=== PATIENT | female | born 1970 | race Caucasian/White ===

== ENCOUNTER 2020-09-25 07:44 | Outpatient (REF) | payer OTHER, SELFPAY ==
[2020-09-25 11:06] LABS: MANUAL DIFF FLAG NO
[2020-09-25 11:15] LABS: Basophils Percent Auto 0.6 % (0-2); Eosinophils Absolute Auto 0.3 X10*3/uL (0.0-0.4); Eosinophils Percent Auto 4.1 % (0-4); Hematocrit 41.9 % (37-47); Hemoglobin 13.6 g/dl (12.0-16.0); Imm Gran Abs Auto 0.01 X10*3/uL (0.00-0.03); Imm Gran Pct Auto 0.1 % (0.0-0.4); Lymphocytes Absolute Auto 3.2 X10*3/uL (1.2-4.9); Lymphocytes Percent Auto 46.8 % (20-40); Mean Corpuscular HGB Conc 32.5 g/dl (31.0-35.0); Mean Corpuscular Hemoglobin 30.2 pg (27.0-33.0); Mean Corpuscular Volume 92.9 fL (80-98); Mean Platelet Volume 11.4 fL (9.4-12.3); Monocytes Absolute Auto 0.5 X10*3/uL (0.1-1.2); Monocytes Percent Auto 7.7 % (2-11); Neutrophils Absolute Auto 2.7 X10*3/uL (2.0-8.3); Neutrophils Percent Auto 40.7 % (45-73); Platelet Count 192 X10*3/uL (160-400); Red Blood Count 4.51 X10*6/uL (4.20-5.50); Red Cell Distribution Width 12.4 % (11.0-16.0); White Blood Count 6.8 X10*3/uL (4.8-10.8)
[2020-09-25 11:47] LABS: Alanine Aminotransferase 21 U/L (0-31); Albumin Level 4.3 g/dL (3.5-5.0); Alkaline Phosphatase 49 U/L (39-117); Anion Gap 13 (12-20); Aspartate Amino Transferase 20 U/L (5-31); Bilirubin Total 0.9 mg/dL (0.0-1.0); Blood Urea Nitrogen 12 mg/dL (9-16); Carbon Dioxide 27 mmol/L (22-29); Chloride 104 mmol/L (96-108); Cholesterol 192 mg/dL; Estimated Glomerular Filt Rate > 60; Glucose Fasting 72 mg/dL (60-99); HDL Cholesterol 92 mg/dL; LDL Cholesterol Calculated 89 mg/dl; Potassium 4.1 mmol/l (3.3-5.1); Sodium 140 mmol/L (135-145); Total Protein 7.1 g/dL (6.5-8.0); Triglycerides 55 mg/dL
[2020-09-25 11:55] LABS: Thyroid Stimulating Hormone 2.43 uIU/mL (0.32-4.0); Vitamin D 25-OH Total 18.1 ng/mL (>30)
== END 2020-09-25 07:45 | disposition home or self-care (01) ==
LOC: HO.HMGCLDS 07:44
PROVIDERS: PCP Internal Medicine; Visit Provider Internal Medicine
DX: Z00.00 Encounter for general adult medical examination without abnormal findings (principal); F32.9 Major depressive disorder, single episode, unspecified
CPT/HCPCS: 36415; 80053; 80061; 82306; 84443; 85025

== ENCOUNTER 2021-03-14 17:00 | Outpatient (RCR) | payer OTHER, SELFPAY | END 2021-04-30 12:54 | disposition home or self-care (01) | LOC: HO.PTCHIC 17:00 | PROVIDERS: PCP Internal Medicine; Visit Provider Internal Medicine | DX: M25.551 Pain in right hip (principal) | CPT/HCPCS: 97110; 97112; 97140; 97161 ==

== ENCOUNTER 2021-09-03 09:00 | Outpatient (RCR) | payer OTHER, SELFPAY | END 2021-09-03 10:13 | disposition home or self-care (01) | LOC: HO.PTCHIC 09:00 | PROVIDERS: PCP Internal Medicine; Visit Provider Orthopaedic Surgery Foot and Ankle Surgery | DX: Z96.661 Presence of right artificial ankle joint (principal) | CPT/HCPCS: 97110; 97112; 97116; 97140; 97161; 97530 ==

== ENCOUNTER 2022-09-05 14:55 | Outpatient (REF) | payer OTHER, SELFPAY ==
--- NOTE | ~2022-09-05 | MM_ITS ---
EXAMINATION: BONE DENSITOMETRY CLINICAL INDICATION: Menopause. COMPARISON: None (current study represents initial baseline exam). TECHNIQUE: Using a HAUL DXA System (software version: 13.1) manufactured by [employer] dual-energy x-ray absorptiometry was performed of the lumbar spine and left hip. The images are of good technical quality. Summary results are attached. FINDINGS: AP SPINE L1-L4: BMD 0.963 g/cm2, Z-score -1.2, T-score -1.8, osteopenia. LEFT FEMUR, NECK: BMD 0.916 g/cm2, Z-score 0.1, T-score -0.9, normal. LEFT FEMUR, TOTAL: BMD 0.950 g/cm2, Z-score 0.1, T-score -0.5, normal. IDENTIFIED RISK FACTORS: Menopause, history of fracture (adult). HISTORY OF FRACTURE: Ankle. MEDICATIONS: Calcium supplements or multivitamin, vitamin D. MM/XR DEXA axial skeleton IMPRESSION: 1. DIAGNOSIS: Osteopenia based on the lowest T-score value of -1.8 in the lumbar spine applying World Health Organization criteria. 2. 10-YEAR FRACTURE RISK PREDICTION, FRAX: Major osteoporotic fracture (clinical spine, forearm, hip or shoulder) 8.6%. Hip fracture 0.4%. 3. Treatment Recommendations: NOF guidelines recommend consideration for treatment in postmenopausal women and men age 50 and older presenting with the following: -A hip or vertebral (clinical or morphometric) fracture. -T-score less than or equal to -2.5 at the femoral neck or spine after appropriate evaluation to exclude secondary causes. -Low bone mass at the hip or spine and a 10-year fracture probability by FRAX of greater than or equal to 3% for hip fracture or greater than or equal to 20% for major osteoporotic fracture based on the [place] adapted WHO algorithm. 4. Other Recommendations: All treatment decisions require clinical judgment and consideration of individual patient factors, including patient preferences, comorbidities, previous drug use, risk factors not captured in the FRAX model (e.g. frailty, falls, vitamin D deficiency, increased bone turnover, interval significant decline in bone density) and possible under or overestimation of fracture risk by FRAX. Additional medical evaluation for secondary cause of low bone mineral density may be appropriate. FUTURE SCAN RECOMMENDATION: People with diagnosed cases of osteoporosis or at high risk for fracture should have regular bone mineral density tests. For patients eligible for Medicare, routine testing is allowed once every 2 years. The testing frequency can be increased to one year for patients who have rapidly progressing disease, those who are receiving or discontinuing medical therapy to restore bone mass, or have additional risk factors.
== END 2022-09-05 14:56 | disposition home or self-care (01) ==
LOC: HO.MAMMO 14:55
PROVIDERS: PCP Internal Medicine; Visit Provider Internal Medicine
DX: Z13.820 Encounter for screening for osteoporosis (principal); Z78.0 Asymptomatic menopausal state
CPT/HCPCS: 77080

== ENCOUNTER 2024-07-02 08:07 | Outpatient (REF) | payer OTHER, SELFPAY ==
[2024-07-02 10:31] LABS: MANUAL DIFF FLAG NO
[2024-07-02 10:41] LABS: Appearance Urine Clear; Color Urine Yellow; Glucose Urine UA Negative (Negative); Leukocyte Esterase Urine Negative (Negative); Nitrite Urine Negative (Negative); UMIC TRIGGER UA YES; Urine Blood Moderate (2+) (Negative); Urine Ketones Negative (Negative); Urine Protein Negative (Neg-Trace)
[2024-07-02 10:58] LABS: Bacteria Urine None Seen (None Seen); Calcium Oxalate Crystals Urine Present; Hyaline Casts Urine 0-2 /LPF (0-2); WBC Urine 0-5 /HPF (0-5)
[2024-07-02 11:05] LABS: Alanine Aminotransferase 18 U/L (0-31); Albumin Level 4.4 g/dL (3.5-5.0); Alkaline Phosphatase 49 U/L (39-117); Anion Gap 12 (12-20); Aspartate Amino Transferase 19 U/L (5-31); Bilirubin Total 0.5 mg/dL (0.0-1.0); Blood Urea Nitrogen 11 mg/dL (9-16); Calcium 10.2 mg/dL (8.4-10.2); Carbon Dioxide 27 mmol/L (22-29); Chloride 107 mmol/L (96-108); Cholesterol 198 mg/dL (<200); Estimated Glomerular Filt Rate > 60; Glucose Fasting 82 mg/dL (60-99); HDL Cholesterol 90 mg/dL (>40); LDL Cholesterol Calculated 101 mg/dL (<100); Sodium 142 mmol/L (135-145); Total Protein 7.3 g/dL (6.5-8.0); Triglycerides 39 mg/dL (<150)
[2024-07-02 11:20] LABS: Basophils Percent Auto 0.6 % (0-2); Eosinophils Absolute Auto 0.2 X10*3/uL (0.0-0.4); Eosinophils Percent Auto 4.4 % (0-4); Hematocrit 42.7 % (37.0-47.0); Hemoglobin 14.3 g/dl (12.0-16.0); Lymphocytes Absolute Auto 2.1 X10*3/uL (1.2-4.9); Lymphocytes Percent Auto 43.7 % (20-40); Mean Corpuscular HGB Conc 33.5 g/dl (31.0-35.0); Mean Corpuscular Hemoglobin 30.2 pg (27.0-33.0); Mean Corpuscular Volume 90.1 fL (80.0-98.0); Mean Platelet Volume 11.2 fL (9.4-12.3); Monocytes Absolute Auto 0.4 X10*3/uL (0.1-1.2); Monocytes Percent Auto 7.3 % (2-11); Neutrophils Absolute Auto 2.1 x10*3/uL (2.0-8.3); Platelet Count 190 X10*3/uL (160-400); Red Blood Count 4.74 X10*6/uL (4.20-5.50); Red Cell Distribution Width 11.9 % (11.0-16.0); White Blood Count 4.8 X10*3/uL (4.8-10.8)
[2024-07-02 11:24] LABS: Thyroid Stimulating Hormone 1.33 uIU/mL (0.32-4.0); Vitamin D 25-OH Total 42.1 ng/mL (>30)
== END 2024-07-02 08:08 | disposition home or self-care (01) ==
LOC: HO.HMGCLDS 08:07
PROVIDERS: PCP Internal Medicine; Visit Provider Internal Medicine
DX: Z00.00 Encounter for general adult medical examination without abnormal findings (principal)
CPT/HCPCS: 36415; 80053; 80061; 81001; 82306; 84443; 85025

== ENCOUNTER 2025-01-06 07:57 | Outpatient (REF) | payer OTHER, SELFPAY ==
--- NOTE | ~2025-01-06 | MR_ITS ---
EXAMINATION: MR BRAIN WITHOUT AND WITH CONTRAST CLINICAL INFORMATION: [facility]. Memory loss. Headache. COMPARISON: June 20, 2010 reporting resolving infarcts. TECHNIQUE: Multiplanar, multisequence MRI of the brain was obtained before and after the intravenous administration of 6.5 mL .(Gadavist) without reported immediate complications.. FINDINGS: No restricted diffusion. No acute intracranial hemorrhage, mass effect, midline shift, hydrocephalus or herniation. Conway-white matter differentiation is normal. There is a focal encephalomalacia without seated hyperintense T2 FLAIR signal and volume loss centered in the anterior right cingulate gyrus and right superior frontal gyrus. No signal abnormality, restricted diffusion or enhancing lesion nor volume loss in the hippocampi. No abnormal enhancement in the intra-axial or the extra-axial compartment of the cranium. There is a 1.2 cm intrinsic hyperintense T1 nonenhancing or restricted diffusion extra-axial lesion in the quadrigeminal plate cistern without mass effect. Sellar/suprasellar region is normal. Craniocervical junction is intact and normal. Flow-void signal within the main cerebral vessels is normal. Mucosal thickening, maxillary sinuses and ethmoid air cells and to a lesser extent right frontal ethmoid recess. MR/MR head/brain wo/w con IMPRESSION: No acute stroke/nonhemorrhagic ischemia. Focal encephalomalacia with gliosis likely sequela of prior vascular insult right CELENA territory. No enhancing mass, intracranial. Congenital lipoma, quadrigeminal plate cistern. Electronically signed by: Rolando Villalpando MD 01/06/2025 09:29 AM EDT
[2025-01-06] MEDS: gadobutroL 7.5 ML VIAL IVPUSH (09:13)
== END 2025-01-06 07:58 | disposition home or self-care (01) ==
LOC: HO.MRI 07:57
PROVIDERS: PCP Internal Medicine; Visit Provider Psychiatry & Neurology Neurology
DX: G31.84 Mild cognitive impairment of uncertain or unknown etiology (principal)
CPT/HCPCS: 70553; A9585

== ENCOUNTER → 2025-01-06 08:10 | Outpatient (BNV) | payer OTHER, SELFPAY | PROVIDERS: PCP Internal Medicine; Visit Provider Radiology Diagnostic Radiology | DX: R41.3 Other amnesia (principal); R51.9 Headache, unspecified | CPT/HCPCS: 70553 ==

== ENCOUNTER 2025-01-17 08:39 | Outpatient (REF) | payer OTHER, SELFPAY ==
[2025-01-17 11:04] LABS: Thyroid Stimulating Hormone 1.64 uIU/mL (0.32-4.0)
[2025-01-17 11:05] LABS: Vitamin B12 368 pg/mL (200-900)
== END 2025-01-17 08:40 | disposition home or self-care (01) ==
LOC: HO.HMGCLDS 08:39
PROVIDERS: PCP Internal Medicine; Visit Provider Psychiatry & Neurology Neurology
DX: G31.84 Mild cognitive impairment of uncertain or unknown etiology (principal)
CPT/HCPCS: 36415; 82607; 84443

== ENCOUNTER 2025-03-09 09:30 | Outpatient (AMB) | payer OTHER, SELFPAY ==
--- NOTE | 2025-03-09 09:31 | MHC.PC.OV ---
Vital Signs 03/09/25 09:35 Height 5 ft 2.6 in Weight 144 lb BMI 25.8 BP 100/55 L Respiration 12 Pulse 64 Pulse Source Pulse Oximeter Temp 98.0 F Temp Source Temporal Artery Scan Pulse Oximetry (%) 98 Oxygen Delivery Method Room Air Intake Visit Reasons: 6 month follow up Cloud Services [employer] Required: No Accompanied by: Self / Same As Patient Allergies SEASONAL ALLERGIES Allergy (Unknown, Uncoded 03/09/25 10:18) UNKNOWN Medication List - Last Reconciled 03/09/25 by Carolyn Lopez PA-C cholecalciferol (vitamin D3) 25 mcg PO DAILY loratadine (Claritin) 10 mg PO DAILY Tobacco use date assessed: 03/09/25 Dental Screening Dental Screen Date: 03/09/25 Did you have a dental visit in the last 12 months?: Yes Did you have a dental problem in the last 6 months where you did not have access to dental care?: No Was dental information given to patient?: Patient has dentist HPI 6 month follow up HPI Details The patient is a 55-year-old female presenting for a six-month follow-up for chronic condition management and to establish a new primary care provider due to her primary care provider Dr. Watson retired October of 2024. She has a history of cervical radiculopathy-related neck pain is under control with postural adjustments, whereas plantar fasciitis and neuropathic symptoms remain dormant due to preventive lifestyle measures. Previously diagnosed with Lyme disease following a thunderclap headache in 2014, the patient was treated but continues to show serologic evidence suggesting past exposure. The patient's IBS is mostly controlled except for occasional flares, and her osteopenia with a lumbar spine focus is being managed with vitamin D supplements. Hyperlipidemia is present but is under monitoring, with cholesterol levels slightly above the ideal threshold per last year's test results. Social History - has a daughter who suffers from seasonal allergies and asthma - Exercise and activities: No specific details discussed, but lifestyle adjustments include posture for cervical comfort. - Dietary considerations: Manages IBS through dietary sensitivity. [facility] Medical History (Updated 03/09/25 @ 11:12 by Carolyn Lopez PA-C) Overweight with body mass index (BMI) of 25 to 25.9 in adult Hyperlipidemia LDL goal <100 Osteopenia of lumbar spine Arthritis of neck Establishing care with new doctor, encounter for History of mammogram (~03/16/24) History of chalazion History of tendonitis Cervical radiculopathy History of hematuria Plantar fasciitis Radiculopathy Neuropathy Lyme disease IBS (irritable bowel syndrome) History of headache Surgical History History of colonoscopy (~06/05/20) H/O wisdom tooth extraction H/O left knee surgery History of cholecystectomy Status post ORIF of fracture of ankle Family History Mother Melanoma Father Cancer Social History Housing: House Alcohol intake: current Alcohol intake frequency: a few times a week Patient Tobacco Use Status: Never used Tobacco service: No Current occupational status: unemployed Cognitive needs: No Hearing needs: No Vision needs: Yes (reading glasses) Questionnaire PHQ-9 Over the last 2 weeks, how often have you been bothered by any of the following problems? 1. Little interest or pleasure in doing things: not at all 2. Feeling down, depressed, or hopeless: not at all 3. Trouble falling or staying asleep, or sleeping too much: not at all 4. Feeling tired or having little energy: not at all 5. Poor appetite or overeating: not at all 6. Feeling bad about yourself - or that you are a failure or have let yourself or your family down: not at all 7. Trouble concentrating on things, such as reading the newspaper or watching television: not at all 8. Moving or speaking so slowly that other people could have noticed. Or the opposite - being so fidgety or restless that you have been moving around a lot more than usual: not at all 9. Thoughts that you would be better off or of hurting yourself in some way: not at all Total score: 0 Depression Screening Interpretation: Negative Depression Screening Done: Yes 62140 - PHQ-9 Billing: Yes Source: Developed by Drs. Carlos Valle, Kay Knapp, Swapnil Stevens and colleagues, with an educational flo from [employer]. Thrive Questionnaire Date Thrive assessed: 03/09/25 I am a: Patient What is your living situation today?: I have a steady place to live Within the past 12 months, did the food you bought not last and you didn't have the money to get more?: Never true Within the past 12 months, did you worry whether your food would run out before you got money to buy more?: Never true Do you have trouble paying for medicines?: No Do you have trouble getting transportation to medical appointments?: No Do you have trouble paying your heating and electricity bill?: No Do you have trouble taking care of your child, family member or friend?: No Do you have trouble with day-to-day activities such as bathing, preparing meals, shopping, managing finances, etc.?: No Are you currently unemployed and looking for a job?: No Are you interested in more education?: No Please select the resources that you would like help with: None THRIVE Score: 0 AUDIT C Alcohol Use Questionnaire (AUDIT-C) 1. How often do you have a drink containing alcohol?: 2-3 times a week 2. How many drinks containing alcohol do you have on a typical day when you are drinking?: 1 or 2 3. How often do you have six or more drinks on one occasion?: Never Total Score: 3 Score Reviewed/Action Taken: No NOAH-7 AMB Questionnaire NOAH-7 Date NOAH - 7 assessed: 03/09/25 Feeling nervous, anxious, or on edge: 0 = Not at all Not being able to stop or control worryin = Not at all Worrying too much about different things: 0 = Not at all Trouble relaxin = Not at all Being so restless that it is hard to sit still: 0 = Not at all Becoming easily annoyed or irritable: 0 = Not at all Feeling afraid as if something awful might happen: 0 = Not at all Total NOAH-7 score (0-4 normal; 5-9 mild; 10-14 moderate; 15-21 severe): 0 Source: Developed by Drs. Carlos Valle, Kay Knapp, Swapnil Stevens and colleagues, with an educational flo from [employer]. NOAH-7 Assessment Billing NOAH-7 Assessment Tool: NOAH-7 Assessment 61814 Review of Systems Const Details: - Musculoskeletal: Denies current plantar fasciitis symptoms; reports chronic neck pain and cervical radiculopathy intermittently. - Neurological: Reports intermittent peripheral neuropathy symptoms. - Gastrointestinal: Reports periodic IBS flare-ups; denies current abdominal pain or digestive issues. - General: Denies shortness of breath, chest pain, or bloody stools. Physical exam (Primary Care) Vital Signs: Last Vital Signs Temp 98.0 F 03/09/25 09:35 Pulse 64 03/09/25 09:35 Resp 12 03/09/25 09:35 BP 100/55 L 03/09/25 09:35 Pulse Ox 98 03/09/25 09:35 Oxygen Delivery Method Room Air 03/09/25 09:35 Care Plan Goal for BP management: <140/90 at Goal BMI result Body Mass Index 25.8 BMI Assessment/Plan discussion: High BMI High, discussed plan: lifestyle, weight reduction, dietary, physical activity and alcohol moderation Tobacco/Smoking Status: Tobacco use Status Tobacco use date assessed 03/09/25 03/09/25 09:42 Patient Tobacco Use Status Never used Tobacco 03/09/25 09:42 PHQ-9: PHQ-9 Score PHQ-9: Total score 0 03/09/25 09:43 Depression Screening Interpretation: Negative Thrive Assessment: Date of Thrive Assessment Date Thrive assessed 03/09/25 03/09/25 09:42 Const Other: Appearance: Alert. Oriented X3. No acute distress. Head: Normal external exam. Normocephalic. Atraumatic. Eyes: Swollen due to allergies. Pupils are equal, round, and reactive to light. Extraocular movements intact. Conjunctiva and sclera normal. Eyelids normal. Ears: External auditory canal normal. Tympanic membranes normal. Ears appear clear with barely any wax. Throat: Pharynx normal. Uvula midline. Moist mucous membranes. Neck: Normal inspection. Neck supple. Full range of motion. Cardiovascular: Normal heart rate and rhythm. Heart sound normal. No murmurs noted. Pulses normal throughout. Respiratory: No respiratory distress. Painless inspiration. Breath sounds normal. No wheezes/rales/rhonchi noted. Chest nontender. No accessory muscle usage noted or decreased air movement noted. Abdomen: Soft and nontender. No distention noted. No organomegaly noted. Back: No costovertebral angle tenderness. Full range of motion noted. Skin: Skin warm and dry. Normal skin color. Normal skin turgor. No rashes/lesions/lacerations noted. Extremities: No lower extremity edema. Extremities exhibit normal range of motion. Extremities nontender. Neuro: Oriented X 3. No motor deficit. No sensory deficit. Reflexes normal. Results Reviewed Results Reviewed: - Labs: CBC normal, kidney function normal, liver enzymes normal, LDL slightly elevated at 101 mg/dL, total cholesterol 198 mg/dL, HDL 90 mg/dL. - Thyroid: Normal function noted in December. - Bone Density: Osteopenia identified in lumbar spine per 2021 scan. - Vitamin Levels: B12 and D levels normal as of the last assessment. Coding Level of Care Code New Pt Level 4 (23878) Complex EM visit Add On G2211 Diagnoses Establishing care with new doctor, encounter for Z76.89 Cervical radiculopathy M54.12 Arthritis of neck M47.812 Plantar fasciitis M72.2 Neuropathy G62.9 IBS (irritable bowel syndrome) K58.9 Osteopenia of lumbar spine M85.88 Hyperlipidemia LDL goal <100 E78.5 Overweight with body mass index (BMI) of 25 to 25.9 in adult E66.3; Z68.25 Additional Codes PHQ-9 - 68489 - PHQ-9 Billing: Yes ([id number]) NOAH-7 Assessment Billing - NOAH-7 Assessment Tool: NOAH-7 Assessment 18749 ([id number]) Time Spent (min) 50 Assessment & Plan Assessment & Plan (1) Establishing care with new doctor, encounter for: Code(s): Z76.89 - Persons encountering health services in other specified circumstances Category: Medical (2) Cervical radiculopathy: Code(s): M54.12 - Radiculopathy, cervical region Category: Medical Plan: Focused posture improvements and potential physical therapy exercises for symptom relief and prevention. Condition is chronic and stable will continue to monitor. (3) Arthritis of neck: Code(s): M47.812 - Spondylosis without myelopathy or radiculopathy, cervical region Category: Medical Plan: Managed via activity adjustments and potential NSAIDs use for symptom management. Condition is chronic and stable will continue to monitor. (4) Plantar fasciitis: Code(s): M72.2 - Plantar fascial fibromatosis Category: Medical Plan: Implement preventive strategies like proper footwear and avoiding barefoot activity. Condition is chronic and stable will continue to monitor. (5) Neuropathy: Code(s): G62.9 - Polyneuropathy, unspecified Category: Medical Plan: Observation and monitoring; no current intervention specified unless symptoms exacerbate. Condition is chronic and stable will continue to monitor. (6) IBS (irritable bowel syndrome): Code(s): K58.9 - Irritable bowel syndrome, unspecified Category: Medical Plan: Controlled with dietary regulation and monitoring of triggers to minimize flares. Condition is chronic and stable will continue to monitor. (7) Osteopenia of lumbar spine: Code(s): M85.88 - Other specified disorders of bone density and structure, other site Category: Medical Plan: Continue vitamin D, recalibrate dietary calcium, and schedule follow-up bone scans. Condition is chronic and stable will continue to monitor. (8) Hyperlipidemia LDL goal <100: Code(s): E78.5 - Hyperlipidemia, unspecified Category: Medical Plan: Suggest lifestyle and diet modifications, monitor cholesterol levels for adjustments. Condition is chronic and stable continue to monitor. (9) Overweight with body mass index (BMI) of 25 to 25.9 in adult: Code(s): E66.3 - Overweight; Z68.25 - Body mass index [BMI] 25.0-25.9, adult Category: Medical Plan: Patient to improve diet and exercise regimen. Condition is chronic and stable will continue to monitor. Plan Plan Patient was informed and verbally consented to the use of an ambient scribe for clinic note documentation during this visit. 1. Cervical Radiculopathy Focused posture improvements and potential physical therapy exercises for symptom relief and prevention. 2. Osteoarthritis Of The Cervical Spine Managed via activity adjustments and potential NSAIDs use for symptom management. 3. Plantar Fasciitis Implement preventive strategies like proper footwear and avoiding barefoot activity. 4. Peripheral Neuropathy Observation and monitoring; no current intervention specified unless symptoms exacerbate. 5. Lyme Disease Retrospective treatment complete; no further action needed pending symptom recurrence. 6. Irritable Bowel Syndrome Controlled with dietary regulation and monitoring of triggers to minimize flares. 7. Osteopenia Continue vitamin D, recalibrate dietary calcium, and schedule follow-up bone scans. 9. Hyperlipidemia Suggest lifestyle and diet modifications, monitor cholesterol levels for adjustments. I discussed with the patient the diagnosis of osteopenia with a focus on lumbar spine involvement, the importance of maintaining vitamin D supplementation, and the potential need for further calcium intake. We reviewed her hyperlipidemia management with the current slightly elevated LDL levels. I emphasized the benefits of nutritional adjustments and potential follow-up lab monitoring. We discussed her cervical radiculopathy and osteoarthritis management plan with a focus on postural adjustments and exercise balancing, while also addressing her intermittent peripheral neuropathy. No new interventions were indicated for the Lyme disease history unless reactive symptoms emerge. Follow-ups for potential colonoscopy reiterations were advised, and I assured the patient she would receive a call for her upcoming bone density scan. Orders: Orders XR DEXA axial skeleton Today M81.0 - Age-related osteoporosis without current pathological fracture Hemoglobin A1c Today Z00.00 - Encounter for general adult medical examination without abnormal findings Lipid Panel Today Z00.00 - Encounter for general adult medical examination without abnormal findings Liver Panel Today Z00.00 - Encounter for general adult medical examination without abnormal findings Vitamin D 25-OH Total Today Z00.00 - Encounter for general adult medical examination without abnormal findings C Reactive Protein Today Z00.00 - Encounter for general adult medical examination without abnormal findings Complete Blood Count Auto Diff Today Z00.00 - Encounter for general adult medical examination without abnormal findings Comprehensive [place]. Panel Fast Today Z00.00 - Encounter for general adult medical examination without abnormal findings Magnesium Today Z00.00 - Encounter for general adult medical examination without abnormal findings Patient Instructions: - Maintain good posture to manage cervical radiculopathy pain. - Use supportive footwear to prevent plantar fasciitis symptoms. - Monitor diet and stress to manage IBS flare-ups. - Keep up dietary vitamin D and calcium intake for bone health. - Consider lifestyle changes to improve cholesterol levels. - Follow up for blood work and potential colonoscopy as planned. - Schedule mammogram as due.
[2025-03-09 09:35] VITALS: BP 100/55; PULSE 64; RESP 12; TEMP 36.7; O2SAT 98; BMI 25.8
== END 2025-03-09 10:22 | disposition home or self-care (01) ==
LOC: HO.HMCSH 09:30
PROVIDERS: PCP Internal Medicine; Visit Provider Physician Assistant Medical
DX: Z76.89 Persons encountering health services in other specified circumstances (principal); M54.12 Radiculopathy, cervical region; M47.812 Spondylosis without myelopathy or radiculopathy, cervical region; M72.2 Plantar fascial fibromatosis; G62.9 Polyneuropathy, unspecified; K58.9 Irritable bowel syndrome, unspecified; M85.88 Other specified disorders of bone density and structure, other site; E78.5 Hyperlipidemia, unspecified; E66.3 Overweight; Z68.25 Body mass index [BMI] 25.0-25.9, adult

== ENCOUNTER → 2025-03-09 09:30 | Outpatient (BNVA) | payer OTHER, SELFPAY | PROVIDERS: PCP Internal Medicine; Visit Provider Physician Assistant Medical | DX: M72.2 Plantar fascial fibromatosis (principal); M47.22 Other spondylosis with radiculopathy, cervical region; K58.9 Irritable bowel syndrome, unspecified; E78.5 Hyperlipidemia, unspecified; M47.812 Spondylosis without myelopathy or radiculopathy, cervical region; G62.9 Polyneuropathy, unspecified; M85.88 Other specified disorders of bone density and structure, other site; M81.0 Age-related osteoporosis without current pathological fracture; E66.3 Overweight; Z68.25 Body mass index [BMI] 25.0-25.9, adult | CPT/HCPCS: 96127 ==

== ENCOUNTER 2025-04-14 09:08 | Outpatient (REF) | payer OTHER, SELFPAY ==
--- NOTE | ~2025-04-14 | MM_ITS ---
EXAMINATION: DXA BONE DENSITY AXIAL HISTORY: M81.0 - Age-related osteoporosis without current pathological fracture TECHNIQUE: [employer] Dual energy absorptiometry (DEXA) of the lumbar spine, total left hip, and femoral neck was performed. COMPARISON: Comparison is made with the prior examination dated 09/05/2022. FINDINGS: The bone mineral density of the lumbar spine is 0.918, corresponding to a T-score of -2.2, and a Z-score of -1.3. This is indicative of osteopenia. This represents a BMD change of -4.7% compared to the prior exam. This is statistically significant. The bone mineral density of the left total hip is 0.912, corresponding to a T-score of -0.8, and a Z-score of -0.1. This is indicative of normal bone mineral density. This represents a BMD change of -4.0% compared to the prior exam. This is statistically significant. The bone mineral density of the left femoral neck is 0.873, corresponding to a T-score of -1.2, and a Z-score of -0.1. This is indicative of osteopenia. This represents a BMD change of -4.7% compared to the prior exam. FRACTURE RISK: The FRAX index suggests a ten year probability of major osteoporotic fracture of 10.9%, and of hip fracture 0.7%. MM/XR DEXA axial skeleton IMPRESSION: Based on bone mineral density, and according to World Health Organization (WHO) criteria, the diagnosis is consistent with osteopenia. All bone density values are in grams per centimeter squared (g/cm2). Statistically, 68% of repeat scans fall within 1 SD (+/- 0.010 g/cm2 for AP spine L1-L4) and 1 SD (+/- 0.012 g/cm2 for femur total) FRAX is a trademark of the [employer]'s [place] [facility] Met[employer], a World Health Organization (WHO) Collaborating Center. Electronically signed by: Carlos Aaron MD 04/14/2025 09:52 AM EDT
== END 2025-04-14 09:09 | disposition home or self-care (01) ==
LOC: HO.MAMMO 09:08
PROVIDERS: PCP Internal Medicine; Visit Provider Physician Assistant Medical
DX: M81.0 Age-related osteoporosis without current pathological fracture (principal)
CPT/HCPCS: 77080

== ENCOUNTER → 2025-04-14 09:15 | Outpatient (BNV) | payer OTHER, SELFPAY | PROVIDERS: PCP Internal Medicine; Visit Provider Radiology Diagnostic Radiology | DX: E28.39 Other primary ovarian failure (principal) | CPT/HCPCS: 77080 ==

== ENCOUNTER 2025-05-09 14:55 | Outpatient (AMB) | payer OTHER, SELFPAY ==
--- NOTE | 2025-05-09 14:56 | MHC.PC.OV ---
Intake Visit Reasons: review DEXA scan Shop Technician Required: No Accompanied by: Self / Same As Patient Allergies SEASONAL ALLERGIES Allergy (Unknown, Uncoded 05/09/25 15:18) UNKNOWN Medication List - Last Reconciled 05/09/25 by Carolyn Lopez PA-C alendronate 35 mg PO QWEEK cholecalciferol (vitamin D3) 25 mcg PO DAILY loratadine (Claritin) 10 mg PO DAILY Tobacco use date assessed: 03/09/25 Dental Screening Dental Screen Date: 03/09/25 Did you have a dental visit in the last 12 months?: Yes Did you have a dental problem in the last 6 months where you did not have access to dental care?: No Was dental information given to patient?: Patient has dentist HPI review DEXA scan HPI Details The patient is a 55-year-old female presenting with concerns regarding her DEXA scan results and medication dosage for osteopenia. The patient had her first DEXA scan two years ago, which showed bone loss, particularly in the lower spine. A recent follow-up scan indicated a significant reduction in bone density, prompting the patient to seek treatment to prevent further deterioration. The patient was prescribed a higher dose of Fosamax, initially thought to be necessary due to a misinterpretation of her condition as osteoporosis rather than osteopenia. She expressed concerns about the dosage, noting that the medication insert mentioned different dosages for prevention and treatment. Upon review, it was clarified that the patient has osteopenia, not osteoporosis, and a lower dosage of the medication is appropriate. The patient was advised to cut her current tablets in half until a new prescription for the lower dose is provided. When the patient needs a refill she will be prescribed 35 mg of Fosamax weekly instead of the 70 mg weekly that is usually prescribed for osteoporosis and the 35 mg is usually for osteopenia without osteoporosis. [facility] Medical History Osteopenia Overweight with body mass index (BMI) of 25 to 25.9 in adult Hyperlipidemia LDL goal <100 Osteopenia of lumbar spine Arthritis of neck Establishing care with new doctor, encounter for History of mammogram (~03/16/24) History of chalazion History of tendonitis Cervical radiculopathy History of hematuria Plantar fasciitis Radiculopathy Neuropathy Lyme disease IBS (irritable bowel syndrome) History of headache Surgical History History of colonoscopy (~06/05/20) H/O wisdom tooth extraction H/O left knee surgery History of cholecystectomy Status post ORIF of fracture of ankle Family History Mother Melanoma Father Cancer Social History Housing: House Alcohol intake: current Alcohol intake frequency: a few times a week Patient Tobacco Use Status: Never used Tobacco service: No Current occupational status: unemployed Cognitive needs: No Hearing needs: No Vision needs: Yes (reading glasses) Questionnaire PHQ-9 Over the last 2 weeks, how often have you been bothered by any of the following problems? 1. Little interest or pleasure in doing things: not at all 2. Feeling down, depressed, or hopeless: not at all 3. Trouble falling or staying asleep, or sleeping too much: not at all 4. Feeling tired or having little energy: not at all 5. Poor appetite or overeating: not at all 6. Feeling bad about yourself - or that you are a failure or have let yourself or your family down: not at all 7. Trouble concentrating on things, such as reading the newspaper or watching television: not at all 8. Moving or speaking so slowly that other people could have noticed. Or the opposite - being so fidgety or restless that you have been moving around a lot more than usual: not at all 9. Thoughts that you would be better off or of hurting yourself in some way: not at all Total score: 0 Depression Screening Interpretation: Negative Depression Screening Done: Yes 15059 - PHQ-9 Billing: Yes Source: Developed by Drs. Carlos Valle, Kay Knapp, Swapnil Stevens and colleagues, with an educational flo from [employer]. Thrive Questionnaire Date Thrive assessed: 03/09/25 I am a: Patient What is your living situation today?: I have a steady place to live Within the past 12 months, did the food you bought not last and you didn't have the money to get more?: Never true Within the past 12 months, did you worry whether your food would run out before you got money to buy more?: Never true Do you have trouble paying for medicines?: No Do you have trouble getting transportation to medical appointments?: No Do you have trouble paying your heating and electricity bill?: No Do you have trouble taking care of your child, family member or friend?: No Do you have trouble with day-to-day activities such as bathing, preparing meals, shopping, managing finances, etc.?: No Are you currently unemployed and looking for a job?: No Are you interested in more education?: No Please select the resources that you would like help with: None THRIVE Score: 0 AUDIT C Alcohol Use Questionnaire (AUDIT-C) 1. How often do you have a drink containing alcohol?: 2-3 times a week 2. How many drinks containing alcohol do you have on a typical day when you are drinking?: 1 or 2 3. How often do you have six or more drinks on one occasion?: Never Total Score: 3 Score Reviewed/Action Taken: No NOAH-7 AMB Questionnaire NOAH-7 Date NOAH - 7 assessed: 03/09/25 Feeling nervous, anxious, or on edge: 0 = Not at all Not being able to stop or control worryin = Not at all Worrying too much about different things: 0 = Not at all Trouble relaxin = Not at all Being so restless that it is hard to sit still: 0 = Not at all Becoming easily annoyed or irritable: 0 = Not at all Feeling afraid as if something awful might happen: 0 = Not at all Total NOAH-7 score (0-4 normal; 5-9 mild; 10-14 moderate; 15-21 severe): 0 Source: Developed by Drs. Carlos Valle, Kay Knapp, Swapnil Stevens and colleagues, with an educational flo from [employer]. NOAH-7 Assessment Billing NOAH-7 Assessment Tool: NOAH-7 Assessment 91049 Physical exam (Primary Care) Tobacco/Smoking Status: Tobacco use Status Tobacco use date assessed 03/09/25 05/09/25 15:01 Patient Tobacco Use Status Never used Tobacco 05/09/25 15:01 PHQ-9: PHQ-9 Score PHQ-9: Total score 0 05/09/25 15:01 Depression Screening Interpretation: Negative Thrive Assessment: Date of Thrive Assessment Date Thrive assessed 03/09/25 05/09/25 15:01 Telehealth Telehealth Telehealth Platform: Telephone Location of provider rendering services: practice address Location of patient: address on file Patient Identification confirmed using: Name, : Yes Telehealth method: voice only Patient verbally consented to treatment: Yes Patient verbally consented to billing insurance company: Yes Patient informed of any privacy concerns related to visit: Yes Minutes spent on Phone/Video with Pt.: 15 Results Reviewed Results Reviewed: Reviewed the patient's DEXA scan that revealed osteopenia on 04/14/2025 Coding Level of Care Code Tele Est Pt Level 4 (75774) Complex EM visit Add On G2211 Diagnoses Osteopenia M85.80 Additional Codes NOAH-7 Assessment Billing - NOAH-7 Assessment Tool: NOAH-7 Assessment 97062 ([id number]) PHQ-9 - 13056 - PHQ-9 Billing: Yes ([id number]) Assessment & Plan Assessment & Plan (1) Osteopenia: Code(s): M85.80 - Other specified disorders of bone density and structure, unspecified site Category: Medical Plan: The patient was initially prescribed a higher dose of Fosamax due to a misunderstanding of her condition as osteoporosis. Upon clarification, it was determined that the patient has osteopenia, and a lower dose is more appropriate. The plan is to reduce the dosage by cutting the current tablets in half and to provide a new prescription for the lower dose 35 mg weekly at the next refill. Plan Plan Patient was informed and verbally consented to the use of an ambient scribe for clinic note documentation during this visit. 1. Osteopenia The patient was initially prescribed a higher dose of Fosamax due to a misunderstanding of her condition as osteoporosis. Upon clarification, it was determined that the patient has osteopenia, and a lower dose is more appropriate. The plan is to reduce the dosage by cutting the current tablets in half and to provide a new prescription for the lower dose at the next refill. During the consultation, we discussed the patient's DEXA scan results and the initial prescription of a higher dose of Fosamax, which was based on a misinterpretation of her condition as osteoporosis. I explained that the patient actually has osteopenia, and a lower dose is appropriate to minimize potential side effects such as gastric ulcers and jaw necrosis associated with long-term use of higher doses. The patient agreed to cut her current tablets in half and will receive a new prescription for the lower dose at the next refill. Medications: Discontinued alendronate (Fosamax) Discontinued Reason: Doctor's Order 70 mg PO QWEEK 13 tabs 3RF 3 months M85.80 - Other specified disorders of bone density and structure, unspecified site Patient Instructions: - Cut your current Fosamax tablets in half and take as directed until the next refill. - Expect a new prescription for the lower dose at your next refill.
== END 2025-05-09 15:52 | disposition home or self-care (01) ==
LOC: HO.HMCSH 14:55
PROVIDERS: PCP Internal Medicine; Visit Provider Physician Assistant Medical
DX: M85.80 Other specified disorders of bone density and structure, unspecified site (principal)

== ENCOUNTER → 2025-05-09 14:55 | Outpatient (BNVA) | payer OTHER, SELFPAY | PROVIDERS: PCP Internal Medicine; Visit Provider Physician Assistant Medical | DX: M85.80 Other specified disorders of bone density and structure, unspecified site (principal) | CPT/HCPCS: 96127 ==

== ENCOUNTER 2025-08-12 15:56 | Outpatient (REF) | payer OTHER, SELFPAY ==
[2025-08-12 19:55] LABS: Appearance Urine Clear; Glucose Urine UA Negative (Negative); PH 6.5 (5.0-9.0); Specific Gravity - Urine <= 1.005 (1.005-1.025); UMIC TRIGGER UACC YES
[2025-08-12 20:11] LABS: UACC Culture Trigger YES
== END 2025-08-12 15:57 | disposition home or self-care (01) ==
LOC: HO.LNP 15:56
PROVIDERS: PCP Physician Assistant Medical; Visit Provider Physician Assistant Medical
DX: Z00.00 Encounter for general adult medical examination without abnormal findings (principal); R42 Dizziness and giddiness; R30.9 Painful micturition, unspecified; N39.0 Urinary tract infection, site not specified; R09.81 Nasal congestion; D17.9 Benign lipomatous neoplasm, unspecified; Z23 Encounter for immunization
CPT/HCPCS: 81001; 81002; 81003; 87086; 90471; 96127

== ENCOUNTER 2025-08-12 15:56 | Outpatient (AMB) | payer OTHER, SELFPAY ==
[2025-08-12 15:57] VITALS: BP 132/63; PULSE 57; TEMP 36.2; O2SAT 100; BMI 25.7
--- NOTE | 2025-08-12 15:57 | MHC.PC.OV ---
Vital Signs 08/12/25 15:57 Height 5 ft 2.6 in Weight 143 lb 6 oz BMI 25.7 BP 132/63 Blood Pressure Location Rt brachial Position Sitting Pulse 57 Pulse Source Pulse Oximeter Temp 97.1 F Temp Source Temporal Artery Scan Pulse Oximetry (%) 100 Oxygen Delivery Method Room Air Intake Visit Reasons: Urinary tract infection Intake Note: Started on Friday with dysuria and frequency. Dysuria has subsided but is still having frequency. Yesterday started with abdominal discomfort. Accompanied by: Self / Same As Patient Allergies SEASONAL ALLERGIES Allergy (Unknown, Uncoded 08/12/25 17:10) UNKNOWN Medication List - Last Reconciled 08/12/25 by Carolyn Lopez PA-C alendronate 35 mg PO QWEEK cholecalciferol (vitamin D3) 25 mcg PO DAILY estradiol (Imvexxy Maintenance Pack) mcg vaginal 2XW fexofenadine-pseudoephedrine 60-120 mg ER (Katie-D 12 Hour) 1 tab PO Q12H PRN meclizine 25 mg PO BID PRN nitrofurantoin monohyd/m-cryst 100 mg (Macrobid) 100 mg PO Q12H 7 days Tobacco use date assessed: 08/12/25 Dental Screening Dental Screen Date: 08/12/25 HPI Urinary tract infection HPI Details The patient is a 55-year-old female presenting with urinary symptoms suggestive of a urinary tract infection and episodes of vertigo. The urinary symptoms began on Friday with discomfort at the end of urination, progressing to frequent urination and burning sensation by Friday. The patient increased fluid intake, which alleviated the burning sensation, but urgency persisted. Urinalysis indicated blood and bacteria, suggesting a urinary tract infection, though the patient denied any recent history of such infections. The patient also reported episodes of vertigo, which began approximately three weeks ago, lasting for about a week. The vertigo was characterized by a sensation of the world spinning, particularly when changing positions, and was associated with a previous episode 10-15 years ago. The patient attempted self-treatment with maneuvers found online, which provided some relief. The patient has a history of sinus congestion, which may contribute to the dizziness, as indicated by mild sinus inflammation observed in a recent MRI. The MRI also revealed a congenital lipoma and evidence of a past vascular insult, but no acute stroke or significant abnormalities. [facility] Medical History (Updated 08/12/25 @ 17:13 by Carolyn Lopez PA-C) Lipoma Sinus congestion Vertigo UTI (urinary tract infection) Osteopenia Overweight with body mass index (BMI) of 25 to 25.9 in adult Hyperlipidemia LDL goal <100 Osteopenia of lumbar spine Arthritis of neck Establishing care with new doctor, encounter for History of mammogram (~03/16/24) History of chalazion History of tendonitis Cervical radiculopathy History of hematuria Plantar fasciitis Radiculopathy Neuropathy Lyme disease IBS (irritable bowel syndrome) History of headache Surgical History History of colonoscopy (~06/05/20) H/O wisdom tooth extraction H/O left knee surgery History of cholecystectomy Status post ORIF of fracture of ankle Family History Mother Melanoma Father Cancer Social History Housing: House Alcohol intake: current Alcohol intake frequency: a few times a week Patient Tobacco Use Status: Never used Tobacco service: No Current occupational status: unemployed Cognitive needs: No Hearing needs: No Vision needs: Yes (reading glasses) Questionnaire PHQ-9 Over the last 2 weeks, how often have you been bothered by any of the following problems? 1. Little interest or pleasure in doing things: not at all 2. Feeling down, depressed, or hopeless: not at all 3. Trouble falling or staying asleep, or sleeping too much: not at all 4. Feeling tired or having little energy: not at all 5. Poor appetite or overeating: not at all 6. Feeling bad about yourself - or that you are a failure or have let yourself or your family down: not at all 7. Trouble concentrating on things, such as reading the newspaper or watching television: not at all 8. Moving or speaking so slowly that other people could have noticed. Or the opposite - being so fidgety or restless that you have been moving around a lot more than usual: not at all 9. Thoughts that you would be better off or of hurting yourself in some way: not at all Total score: 0 Depression Screening Interpretation: Negative Depression Screening Done: Yes 22035 - PHQ-9 Billing: Yes Source: Developed by Drs. Carlos Valle, Kay Knapp, Swapnil Stevens and colleagues, with an educational flo from [employer]. Thrive Questionnaire Date Thrive assessed: 08/12/25 I am a: Patient What is your living situation today?: I have a steady place to live Within the past 12 months, did the food you bought not last and you didn't have the money to get more?: Never true Within the past 12 months, did you worry whether your food would run out before you got money to buy more?: Never true Do you have trouble paying for medicines?: No Do you have trouble getting transportation to medical appointments?: No Do you have trouble paying your heating and electricity bill?: No Do you have trouble taking care of your child, family member or friend?: No Do you have trouble with day-to-day activities such as bathing, preparing meals, shopping, managing finances, etc.?: No Are you currently unemployed and looking for a job?: No Are you interested in more education?: No Please select the resources that you would like help with: None THRIVE Score: 0 AUDIT C Alcohol Use Questionnaire (AUDIT-C) 1. How often do you have a drink containing alcohol?: 2-3 times a week 2. How many drinks containing alcohol do you have on a typical day when you are drinking?: 1 or 2 3. How often do you have six or more drinks on one occasion?: Never Total Score: 3 Score Reviewed/Action Taken: No NOAH-7 AMB Questionnaire NOAH-7 Date NOAH - 7 assessed: 08/12/25 Feeling nervous, anxious, or on edge: 0 = Not at all Not being able to stop or control worryin = Not at all Worrying too much about different things: 0 = Not at all Trouble relaxin = Not at all Being so restless that it is hard to sit still: 0 = Not at all Becoming easily annoyed or irritable: 0 = Not at all Feeling afraid as if something awful might happen: 0 = Not at all Total NOAH-7 score (0-4 normal; 5-9 mild; 10-14 moderate; 15-21 severe): 0 Source: Developed by Drs. Carlos Valle, Kay Knapp, Swapnil Stevens and colleagues, with an educational flo from [employer]. NOAH-7 Assessment Billing NOAH-7 Assessment Tool: NOAH-7 Assessment 92518 Review of Systems Const Details: - Genitourinary: Reports urinary urgency and burning sensation; denies hematuria. - Neurological: Reports episodes of vertigo; denies changes in vision, weakness, or confusion. - Ears, Nose, Throat: Reports sinus congestion; denies ear pain or swelling. All systems reviewed & are unremarkable except as noted in HPI and below Physical exam (Primary Care) Vital Signs: Last Vital Signs Temp 97.1 F 08/12/25 15:57 Pulse 57 08/12/25 15:57 BP 132/63 08/12/25 15:57 Pulse Ox 100 08/12/25 15:57 Oxygen Delivery Method Room Air 08/12/25 15:57 Care Plan Goal for BP management: <140/90 at Goal BMI result Body Mass Index 25.7 BMI Assessment/Plan discussion: High BMI High, discussed plan: lifestyle, weight reduction, dietary, physical activity, alcohol moderation and other Tobacco/Smoking Status: Tobacco use Status Tobacco use date assessed 08/12/25 08/12/25 16:09 Patient Tobacco Use Status Never used Tobacco 08/12/25 16:00 PHQ-9: PHQ-9 Score PHQ-9: Total score 0 08/12/25 16:15 Depression Screening Interpretation: Negative Thrive Assessment: Date of Thrive Assessment Date Thrive assessed 08/12/25 08/12/25 16:09 Const Other: Appearance: Alert. Oriented X3. No acute distress. Head: Normal external exam. Normocephalic. Atraumatic. Eyes: Pupils are equal, round, and reactive to light. Extraocular movements intact. Conjunctiva and sclera normal. Eyelids normal. Ears: External auditory canal normal. Tympanic membranes normal. Ears have a little bit of wax but no swelling. Throat: Pharynx normal. Uvula midline. Moist mucous membranes. Neck: Normal inspection. Neck supple. Full range of motion. No adenopathy. Thyroid Normal. No meningeal signs. No neck mass noted. Cardiovascular: Normal heart rate and rhythm. Heart sound normal. No murmurs noted. Pulses normal throughout. Respiratory: No respiratory distress. Painless inspiration. Breath sounds normal. No wheezes/rales/rhonchi noted. Chest nontender. No accessory muscle usage noted or decreased air movement noted. Abdomen: Soft and nontender. Bowel sounds normal in all 4 quadrants. No distention noted. No organomegaly noted. No visible injury noted. No pain over the kidneys or bladder area. Back: No costovertebral angle tenderness. Full range of motion noted. Skin: Skin warm and dry. Normal skin color. Normal skin turgor. No rashes/lesions/lacerations noted. Extremities: No lower extremity edema. Extremities exhibit normal range of motion. Neuro: Oriented X 3. No motor deficit. No sensory deficit. Reflexes normal. No changes in vision, no weakness, no confusion. Mild sinus congestion noted, which may contribute to dizziness. Office Procedures Flu Questionnaire Does the patient have a severe egg allergy?: No Does the patient have severe life threatening allergies?: No Does the patient have a fever or illness today?: No Has the patient ever had Guillain-[place] Syndrome?: No Has the patient ever had any past reaction to a flu shot?: No Results AMB Urinalysis Dipstick UR Leukocytes Small Last Edit by Yenifer Almaraz CMA on 08/12/25 16:16 UR Nitrite Last Edit by Yenifer Almaraz CMA on 08/12/25 16:16 UR Urobilinogen Last Edit by Yenifer Almaraz CMA on 08/12/25 16:16 UR Protein Last Edit by Yenifer Almaraz CMA on 08/12/25 16:16 UR Ph 6.0 Last Edit by Yenifer Almaraz CMA on 08/12/25 16:16 UR Blood Large Last Edit by Yenifer Almaraz CMA on 08/12/25 16:16 UR Specific [place] 1.005 Last Edit by Yenifer Almaraz CMA on 08/12/25 16:16 UR Ketone Last Edit by Yenifer Almaraz CMA on 08/12/25 16:16 UR Bilirubin Last Edit by Yenifer Almaraz CMA on 08/12/25 16:16 UR Glucose Last Edit by Yenifer Almaraz CMA on 08/12/25 16:16 Immunizations Fluarix [id number] (PF) 45 mcg (15 mcg x 3)/0.5 mL IM syringe Performing Provider: Carolyn Lopez PA-C [facility] Documented (not given) by: Yenifer Almaraz CMA on 08/12/25 16:09 Reason Not Given: Received Previously Results Reviewed Results Reviewed: Laboratory Last Values Urine pH (Clinic) 6.0 08/12/25 16:01 Specific [place] (Clinic) 1.005 08/12/25 16:01 Urine Blood (Clinic) Large 08/12/25 16:01 Leukocyte Esterase (Clinic) Small 08/12/25 16:01 - Labs: Urinalysis showed blood and bacteria. - Imaging: MRI indicated mild sinus congestion, congenital lipoma, and evidence of past vascular insult. Coding Level of Care Code Est Pt Level 4 (49446) Complex EM visit Add On G2211 Diagnoses UTI (urinary tract infection) N39.0 Vertigo R42 Sinus congestion R09.81 Lipoma D17.9 Additional Codes NOAH-7 Assessment Billing - NOAH-7 Assessment Tool: NOAH-7 Assessment 79695 ([id number]) PHQ-9 - 29257 - PHQ-9 Billing: Yes ([id number]) Assessment & Plan Assessment & Plan (1) UTI (urinary tract infection): Code(s): N39.0 - Urinary tract infection, site not specified Category: Medical Plan: The patient will begin treatment with nitrofurantoin (Macrobid) and monitor symptoms over the weekend, contacting the clinic if necessary. A urine culture has been sent to confirm the diagnosis and guide further treatment if needed. (2) Vertigo: Code(s): R42 - Dizziness and giddiness Category: Medical Plan: Meclizine is prescribed for dizziness, and the patient is advised to continue self-maneuvers at home. Referral to physical therapy is considered if symptoms persist. (3) Sinus congestion: Code(s): R09.81 - Nasal congestion Category: Medical Plan: Katie is recommended to alleviate sinus congestion and associated dizziness. 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 Plan Plan Patient was informed and verbally consented to the use of an ambient scribe for clinic note documentation during this visit. 1. Urinary Tract Infection The patient will begin treatment with nitrofurantoin (Macrobid) and monitor symptoms over the weekend, contacting the clinic if necessary. A urine culture has been sent to confirm the diagnosis and guide further treatment if needed. 2. Vertigo Meclizine is prescribed for dizziness, and the patient is advised to continue self-maneuvers at home. Referral to physical therapy is considered if symptoms persist. 3. Sinus Congestion Katie is recommended to alleviate sinus congestion and associated dizziness. 4. 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 I discussed with the patient the likely diagnosis of a urinary tract infection and the plan to treat it with nitrofurantoin, emphasizing the importance of monitoring symptoms and contacting us if they worsen. We also discussed the management of vertigo with meclizine and the potential need for physical therapy if symptoms persist. I explained the role of sinus congestion in her dizziness and recommended Katie to help alleviate symptoms. Orders: Orders AMB Urinalysis Dipstick Today Z13.9 - Encounter for screening, unspecified Influenza [id number] Immunization Today Z23 - Encounter for immunization UA CC w/rflx Micro + Cult Today Z00.00 - Encounter for general adult medical examination without abnormal findings Medications: New nitrofurantoin monohyd/m-cryst 100 mg (Macrobid) must administer with a meal/food 100 mg PO Q12H 14 caps 0RF 7 days meclizine 25 mg PO BID PRN 30 tabs 3RF dizziness fexofenadine-pseudoephedrine 60-120 mg ER (Katie-D 12 Hour) 1 tab PO Q12H PRN 30 tabs 0RF allergy symptoms Patient Instructions: - Take nitrofurantoin (Macrobid) as prescribed for urinary tract infection. - Monitor symptoms and contact the clinic if they worsen or do not improve. - Take meclizine as needed for dizziness. - Continue self-maneuvers for vertigo at home. - Take Katie for sinus congestion. - Seek medical attention if experiencing stroke-like symptoms.
== END 2025-08-12 16:33 | disposition home or self-care (01) ==
LOC: HO.HMCSH 15:56
PROVIDERS: PCP Physician Assistant Medical; Visit Provider Physician Assistant Medical
DX: N39.0 Urinary tract infection, site not specified (principal); R42 Dizziness and giddiness; R09.81 Nasal congestion; D17.9 Benign lipomatous neoplasm, unspecified; Z23 Encounter for immunization; Z13.9 Encounter for screening, unspecified

== ENCOUNTER 2025-09-23 09:23 | Day surgery (SDC) | payer OTHER, SELFPAY ==
--- NOTE | 2025-09-20 13:21 | HO.ANESPROP2 ---
Documented by User: Hailee Davis NP 09/20/25 13:23 HPI - Anesthesia Eval Consult details Narrative: 55yo F for Colonoscopy PMFSH Active Problems Active Problems: All Active Problems Lipoma (Acute) Sinus congestion (Acute) Vertigo (Acute) UTI (urinary tract infection) (Acute) Osteopenia (Acute) Overweight with body mass index (BMI) of 25 to 25.9 in adult (Acute) Hyperlipidemia LDL goal <100 (Acute) Osteopenia of lumbar spine (Acute) Arthritis of neck (Acute) Establishing care with new doctor, encounter for (Acute) History of chalazion (Acute) History of tendonitis (Acute) Cervical radiculopathy (Acute) History of hematuria (Acute) Plantar fasciitis (Acute) Radiculopathy (Acute) Neuropathy (Acute) Lyme disease (Acute) IBS (irritable bowel syndrome) (Acute) History of headache (Acute) Past Medical History Medical History Lipoma Sinus congestion Vertigo UTI (urinary tract infection) Osteopenia Overweight with body mass index (BMI) of 25 to 25.9 in adult Hyperlipidemia LDL goal <100 Osteopenia of lumbar spine Arthritis of neck Establishing care with new doctor, encounter for History of mammogram (~03/16/24) History of chalazion History of tendonitis Cervical radiculopathy History of hematuria Plantar fasciitis Radiculopathy Neuropathy Lyme disease IBS (irritable bowel syndrome) History of headache Family History Family History Mother Melanoma Father Cancer Surgical History Surgical History History of colonoscopy (~06/05/20) H/O wisdom tooth extraction H/O left knee surgery History of cholecystectomy Status post ORIF of fracture of ankle Social History Social History Housing: House Alcohol intake: current Alcohol intake frequency: a few times a week Patient Tobacco Use Status: Never used Tobacco service: No Current occupational status: unemployed Cognitive needs: No Hearing needs: No Vision needs: Yes (reading glasses) Meds Allergies Allergy/AdvReac Type Severity Reaction Status Date / Time Seasonal Allergies Allergy Unknown Unknown Verified 09/21/25 13:45 Home Medications ?Medication ?Instructions ?Recorded ?Confirmed ?Last Taken ?Type cholecalciferol (vitamin D3) 25 25 mcg PO DAILY 03/09/25 09/21/25 Unknown History mcg (1,000 unit) capsule alendronate 35 mg tablet 35 mg PO QWEEK 05/09/25 09/21/25 Unknown History estradiol 10 mcg vaginal insert 10 mcg vaginal 2XW 09/21/25 09/21/25 Unknown History (Imvexxy Maintenance Pack) Assessment and Plan Assessment Anesthesia Assessment: Chart Reviewed Documented by User: Yesenia Vu MD 09/23/25 07:54 [facility] Past Medical History Medical History Lipoma Sinus congestion Vertigo UTI (urinary tract infection) Osteopenia Overweight with body mass index (BMI) of 25 to 25.9 in adult Hyperlipidemia LDL goal <100 Osteopenia of lumbar spine Arthritis of neck Establishing care with new doctor, encounter for History of mammogram (~03/16/24) History of chalazion History of tendonitis Cervical radiculopathy History of hematuria Plantar fasciitis Radiculopathy Neuropathy Lyme disease IBS (irritable bowel syndrome) History of headache Family History Family History Mother Melanoma Father Cancer Family history of problems with anesthesia: No Surgical History Surgical History History of colonoscopy (~06/05/20) H/O wisdom tooth extraction H/O left knee surgery History of cholecystectomy Status post ORIF of fracture of ankle History of Problems with Anesthesia: No Social History Social History Housing: House Alcohol intake: current Alcohol intake frequency: a few times a week Patient Tobacco Use Status: Never used Tobacco service: No Current occupational status: unemployed Cognitive needs: No Hearing needs: No Vision needs: Yes (reading glasses) Meds Allergies Allergy/AdvReac Type Severity Reaction Status Date / Time Seasonal Allergies Allergy Unknown Unknown Verified 09/21/25 13:45 Home Medications ?Medication ?Instructions ?Recorded ?Confirmed ?Last Taken ?Type cholecalciferol (vitamin D3) 25 25 mcg PO DAILY 03/09/25 09/21/25 Unknown History mcg (1,000 unit) capsule alendronate 35 mg tablet 35 mg PO QWEEK 05/09/25 09/21/25 Unknown History estradiol 10 mcg vaginal insert 10 mcg vaginal 2XW 09/21/25 09/21/25 Unknown History (Imvexxy Maintenance Pack) Exam Airway Mallampati Class: II TM Dist: >3cm Neck ROM: Full Heart: rrr Lungs: cta Assessment and Plan Assessment Anesthesia Assessment: Anesthesia Plan Discussed Final Anesthetic Review Family History of Problems with Anesthesia: No History of Problems with Anesthesia: No NPO: Yes ASA Class: II Final Preanesthetic Review: No Changes in Pt Med Stat, Meds/Allgs Chart Reviewed, Consent Obtained/Reviewed and Anes Risks/Benef Reviewed Patient Risk: Intermediate Procedure Risk: Low Anesthetic Plan Anesthetic Plan: MAC: Disposition: Standard PACU
[2025-09-21 13:47] VITALS: BMI 25.5
[2025-09-23 09:29] VITALS: BP 142/78; PULSE 75; RESP 20; TEMP 36.6; O2SAT 98; BMI 24.8
[2025-09-23] MEDS: Lactated Ringers 1,000 ML 100 ML IVCONT (09:46)
[2025-09-23 12:11] VITALS: BP 100/57; PULSE 53; RESP 12; TEMP 36.1; O2SAT 99
--- NOTE | 2025-09-23 12:16 | P.BOP_ITS ---
Brief Operative Note Date of Service: 09/30/25 Pre-op diagnosis: Screening Post-op diagnosis: other (Diverticulosis) Procedure: Colonoscopy to the cecum Surgeon: Carlos Tracey MD Anesthesia: MAC Was an Lift Team Technician used for this Procedure?: No Estimated blood loss (mL): 0 Pathology: none sent Condition: stable Disposition: PACU
[2025-09-23 12:23] VITALS: BP 106/63; PULSE 60; RESP 18; TEMP 36.1; O2SAT 100
--- NOTE | 2025-09-23 12:43 | OP_ITS ---
DATE OF SERVICE: 09/23/2025 SURGEON: Carlos Tracey MD INDICATIONS: The patient presents for evaluation of personal history of a serrated colon polyp and need for colorectal cancer screening. Full consent has been obtained from her for this, including risks of bleeding and perforation. PREOPERATIVE DIAGNOSIS: POSTOPERATIVE DIAGNOSIS: PROCEDURE PERFORMED: Colonoscopy to cecum. ESTIMATED BLOOD LOSS: COMPLICATIONS: ANESTHESIA: Medication used, monitored anesthesia care. ASSISTANTS: SPECIMENS: PREOPERATIVE DIAGNOSES: Colorectal cancer screening and history of a serrated colon polyp. POSTOPERATIVE DIAGNOSES: Colorectal cancer screening and history of a serrated colon polyp, diverticulosis, and internal hemorrhoids. DESCRIPTION OF PROCEDURE: The patient was placed in the left lateral decubitus position. The digital rectal exam revealed no abnormalities. The Olympus video pediatric colonoscope was entered into the rectum and advanced easily to the cecum. Once in the cecum, I did identify normal-appearing cecal pouch with appendiceal orifice and a normal-appearing ileocecal valve. The entire cecum and ileocecal valve appeared normal. The scope was slowly withdrawn assessing all mucosal surfaces carefully. Preparation was excellent. I did not visualize any sign of polyps, colitis, nor angiodysplasia. There was a mild amount of sigmoid diverticulosis. In the rectum, the scope was retroflexed visualizing small internal hemorrhoids, The rectal mucosa appeared normal. The scope was straightened and withdrawn from the patient. She tolerated the procedure well and was returned to the recovery area in stable condition. IMPRESSION: 1. Mild diverticulosis. 2. Internal hemorrhoids. PLAN: Given her previous history, I would recommend a repeat colonoscopy in 5 years for further screening. She will otherwise see me as needed. Carlos Tracey MD RMW/MODL / [id number] MTDD
== END 2025-09-23 12:55 | disposition home or self-care (01) ==
PROVIDERS: PCP Physician Assistant Medical; Visit Provider Internal Medicine
PROC: 0DJD8ZZ Inspection of Lower Intestinal Tract, Via Natural or Artificial Opening Endoscopic (ICD-10-PCS; CPT 45378; principal; 2025-09-23 10:30)
DX: Z12.11 Encounter for screening for malignant neoplasm of colon (principal); Z86.0101 Personal history of adenomatous and serrated colon polyps; K57.30 Diverticulosis of large intestine without perforation or abscess without bleeding; K64.8 Other hemorrhoids
CPT/HCPCS: 45378; J2003; J2704